=== PATIENT | male | born 1995 | race Caucasian/White ===

== ENCOUNTER 2021-12-06 16:44 | Emergency (ER) | payer SELFPAY ==
[~2021-12-06] VITALS: Ht 170.7 cm; Wt 92.6 kg
[2021-12-06 17:02] VITALS: BP 137/89
[2021-12-06] MEDS ORDERED: CIPR10SU LEFT EAR (18:08)
[2021-12-06] MEDS ORDERED: IBUP-2213 PO (18:08)
--- NOTE | 2021-12-06 18:38 | NUR ---
26 y/o male bib self, c/o left ear pain, headache, sore throat for 5 days. denies nausea, vomiting, diarrhea. skin is pink/warm/dry. a&o x4 with even and steady gait. lungs clear bl, heart rate even and regular. pt denies any fever, cp, sob, or cough at this time. pt states pain is 6/10 at this time. ermd made aware of pt. pmh: denies nka med: denies
--- NOTE | 2021-12-06 18:59 | NUR ---
Patient discharged with v/s stable. Written and verbal after care instructions given and explained. Patient alert, oriented and verbalized understanding of instructions. Ambulatory with steady gait. All questions addressed prior to discharge. ID band removed. Patient advised to follow up with PMD. Rx of ciprofloxacin, ibuprofen (sent) given. Patient educated on indication of medication including possible reaction and side effects. Opportunity to ask questions provided and answered.
[2021-12-06 19:00] VITALS: BP 137/89
== END 2021-12-06 18:59 | disposition home or self-care (01) ==
LOC: MED 16:44
DX: H60.92 Unspecified otitis externa, left ear (principal); R07.0 Pain in throat
CPT/HCPCS: 99283